=== PATIENT | female | born 1930 | race Caucasian/White ===

== ENCOUNTER 2019-09-12 13:16 | Emergency (ER) | payer OTHER, BC ==
[2019-09-12 14:40] LABS: Absolute Lymphocytes (CBC) 1.2 K/uL (0.7-4.9); Basophils % 0.7 % (0-1.3); Hematocrit 35.2 % (36.0-45.0); Lymphocytes % 13.6 % (15.3-44.8); MPV 8.6 fL (7.6-11.3); RBC Red Blood Cell Count 3.75 M/uL (3.86-4.86)
[2019-09-12 14:54] LABS: Albumin 2.6 g/dL (3.4-5.0); Bilirubin Direct 0.2 mg/dL (0-0.2); Bilirubin Total 0.5 mg/dL (0.2-1.0); Protein, Total 7.2 g/dL (6.4-8.2)
--- NOTE | 2019-09-12 16:18 | RAD REPORT ---
EXAM DESCRIPTION: CT - Abdomen Pelvis W Contrast - 09/12/2019 3:43 pm CLINICAL HISTORY: ABD PAIN COMPARISON: CT ABD PELVIS W CONTRAST dated 03/13/2014; Lumbar Spine 3 Views dated 06/13/2016 TECHNIQUE: Biphasic, helical CT imaging of the abdomen and pelvis was performed following 100 ml non -ionic IV contrast. No oral contrast. All CT scans are performed using dose optimization technique as appropriate and may include automated exposure control or mA/KV adjustment according to patient size. FINDINGS: No suspicious findings in the lung bases. Heart size is upper normal. No pericardial effus ion. Left hemidiaphragm elevation is noted. Chronic interstitial lung changes are present. No focal liver lesions. No significant change from prior imaging. No splenic abnormality. Multi stone cholelithiasis is present. No biliary tree dilatation. Pancreas is grossly abnormal. A 4.6 cm AP x 6.8 cm TR heterogeneous hypodense mass fills the body of the pancreas. Head and uncinate process show no suspicious findings. Pancreatic tail shows prominent pancreatic duct dilatation. Small lymph nodes are present in the adjacent tissues. No bulky lymphaden opathy seen. Renal function is symmetric but delayed. Patient has significant bilateral hydronephrosis and hydrour eter. This extends into the pelvis down to the UVJ. The UVJ is are poorly visualized. Patient has a l arge cystocele. A 6-7 centimeter portion of the urinary bladder extends through the pelvic floor crea ting an hourglass shaped urinary bladder. UVJ is are probably extending below the pelvic floor causin g extrinsic compression of the ureters in the resulting significant hydronephrosis. Uterus is absent. No pyelonephritis or acute parenchymal process. No adrenal abnormalities. No gastric dilatation or gastric wall thickening. No duodenal involvement by the pancreatic process. No acute small bowel finding. Moderate stool volume seen throughout the colon. No acute colon process seen. No free air, free fluid or inflammatory stranding. No bulky lymphadenopathy. No omental thic kening. Patient has low-lying pannus with an additional 5-6 centimeter hernia extending anteriorly fr om the pannus. The hernia contains small bowel loop. No congestion or edema. Disc and bony degenerative changes are present. Patient has approximately 30% T10, 80% T11, 10% T12, 50% L1, 80% L2, 50% L4 and 20% L5 compression fracture deformities. No pathologic component. Acute fr acture components are not seen or suspected. Compression fractures are not new but are progressive fr om 2017. 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 There is obstructive dilata tion of the pancreatic duct in the tail. Small lymph nodes are adjacent to the malignancy but no large malignant lymphadenopathy or ascites pr esent. No liver metastatic lesions seen. Significant bilateral hydronephrosis and hydroureter caused by a large cystocele with extrinsic obstr uctive compression of the distal ureters. Urinary bladder has a bilobed configuration created by th e large cyst is seal with the UVJ likely below the pelvic floor. Low-lying pannus with associated anterior wall hernia defect. The hernia contains small bowel but no acute component seen. Multi stone cholelithiasis. No acute gallbladder or biliary tree finding.
--- NOTE | 2019-09-12 17:56 | EDPHYS ---
Physician Documentation [facility] Name: Mireille Donovan Age: 89 yrs Sex: Female : 1930 Arrival Date: 09/12/2019 Time: 13:20 Bed 13 Private MD: Faisal Chirinos R ED Physician José Hutchinson HPI: 09/11 14:38 This 89 yrs old Female presents to ER via Wheelchair with complaints of ms3 Abdominal Pain, Shoulder Pain. 14:38 The patient or guardian complains of pain, that is acute. right shoulder. Context: The ms3 problem was sustained at an unknown site, resulted from an unknown reason, The patient reports no decreased range of motion. The patient reports no obvious deformity. Onset: The symptoms/episode began/occurred 5 week(s) ago. Modifying factors: the symptoms are alleviated by nothing. The symptoms are aggravated by movement. Associated signs and symptoms: The patient has no apparent associated signs or symptoms. The patient presents with abdominal pain that is diffuse. Onset: The symptoms/episode began/occurred 5 week(s) ago. The symptoms do not radiate. Associated signs and symptoms: Pertinent positives: nausea, Pertinent negatives: vomiting. The symptoms are described as achy. Modifying factors: The symptoms are alleviated by nothing, the symptoms are aggravated by Nothing. Severity of pain: in the emergency department the pain is unchanged. Severity of symptoms: in the emergency department the symptoms are unchanged. Treatment prior to arrival includes: no previous treatment. Historical: - Allergies: 13:35 No Known Allergies; iw - Home Meds: 13:35 carvedilol 3.125 mg oral tab 1 tab 2 times per day [Active]; furosemide 20 mg Oral tab iw 1 tab once daily [Active]; - PSHx: 13:35 Hernia repair; iw - Immunization history:: Adult Immunizations not up to date. - Social history:: Smoking status: Patient/guardian denies using tobacco, the patient reports quitting approximately 30 years ago. - Family history:: not pertinent. ROS: 14:38 Constitutional: Negative for fever, and chills. Eyes: Negative for injury, pain, ms3 redness, and discharge, ENT: Negative for injury, pain, and discharge, Neck: Negative for injury, pain, and swelling, Cardiovascular: Negative for chest pain, and palpitations. Respiratory: Negative for shortness of breath, cough, wheezing, and pleuritic chest pain, Back: Negative for injury and pain, MS/Extremity: Negative for injury and deformity, Skin: Negative for injury, rash, and discoloration, Neuro: Negative for headache, weakness, numbness, tingling. 14:38 Abdomen/GI: Positive for abdominal pain, nausea. 14:38 MS/extremity: Positive for Right shoulder pain. Exam: 14:38 Constitutional: This is a well developed, well nourished patient who is awake, alert, ms3 and in no acute distress. Head/Face: Normocephalic, atraumatic. Eyes: Pupils equal round and reactive to light, extra-ocular motions intact. Lids and lashes normal. Conjunctiva and sclera are non-icteric and not injected. Cornea within normal limits. Periorbital areas with no swelling, redness, or edema. Chest/axilla: Normal chest wall appearance and motion. Nontender with no deformity. Cardiovascular: Regular rate and rhythm with a normal S1 and S2. No gallops, murmurs, or rubs. Normal PMI, no JVD. No pulse deficits. Respiratory: Lungs have equal breath sounds bilaterally, clear to auscultation and percussion. No rales, rhonchi or wheezes noted. No increased work of breathing, no retractions or nasal flaring. Back: No spinal tenderness. No costovertebral tenderness. Full range of motion. Skin: Warm, dry with normal turgor. Normal color with no rashes, no lesions, and no evidence of cellulitis. Neuro: Awake and alert, GCS 15, oriented to person, place, time, and situation. Cranial nerves II-XII grossly intact. Motor strength 5/5 in all extremities. Sensory grossly intact. Cerebellar exam normal. Normal gait. 14:38 Abdomen/GI: Inspection: abdomen appears normal, Bowel sounds: normal, Palpation: soft, mild abdominal tenderness, in all quadrants. Vital Signs: 13:31 BP 102 / 62; Pulse 91; Resp 16 S; Temp 97.7; Pulse Ox 95% on R/A; Weight 59.87 kg; iw Height 5 ft. 5 in. (165.10 cm); Pain 0/10; 16:00 BP 160 / 74; Pulse 79; Resp 25; Temp 98; Pulse Ox 98% ; ah 16:54 BP 160 / 74; Pulse 79; Resp 25; Pulse Ox 98% ; ah 18:22 BP 145 / 97; Pulse 87; Resp 16; Temp 97.6; Pulse Ox 96% on R/A; ah 13:31 Body Mass Index 21.97 (59.87 kg, 165.10 cm) iw MDM: 13:59 Patient medically screened. ms3 14:42 Differential diagnosis: tendonitis, appendicitis, bowel obstruction, cholecystitis. ms3 Data reviewed: vital signs, nurses notes. 18:27 Data interpreted: Pulse oximetry: Interpretation: normal. Counseling: I had a detailed ms3 discussion with the patient and/or guardian regarding: lab results, radiology results, the need to transfer to another facility. ED course: Discussed case with Dr Gee. She accepts pt to medicine floor at [facility].. 09/11 14:01 Order name: CBC with Diff; Complete Time: 15:10 ms3 09/11 14:01 Order name: Basic Metabolic Panel; Complete Time: 15:10 ms3 09/11 14:01 Order name: Creatinine for Radiology; Complete Time: 15:10 ms3 09/11 14:01 Order name: Hepatic Function; Complete Time: 15:10 ms3 09/11 14:01 Order name: Lipase; Complete Time: 15:10 ms3 09/11 14:01 Order name: CT Abd/Pelvis - IV Contrast Only; Complete Time: 16:59 ms3 09/11 14:01 Order name: IV Saline Lock; Complete Time: 14:16 ms3 09/11 14:01 Order name: Labs collected and sent; Complete Time: 14:16 ms3 Administered Medications: No medications were administered Disposition: 09/12/19 17:55 Transfer ordered to [facility]. Diagnosis are Pancreatic Cancer, Anemia, Cystocele, Hydronephrosis, Upper abdominal pain, unspecified, Nausea. - Reason for transfer: Higher level of care. - Accepting physician is Marlen. - Condition is Stable. - Problem is new. - Symptoms are unchanged. Signatures: Dispatcher [employer] EDNegar Cary RN RN Monika Costello RN RN ah Sims, Marcus, DO DO ms3 Corrections: (The following items were deleted from the chart) 19:56 17:55 09/12/2019 17:55 Transfer ordered to [facility]. ah Diagnosis is Pancreatic Cancer; Anemia; Cystocele; Hydronephrosis; Upper abdominal pain, unspecified; Nausea. Reason for transfer: Higher level of care. Accepting physician is Marlen. Condition is Stable. Problem is new. Symptoms are unchanged. ms3
--- NOTE | 2019-09-12 17:56 | ER ---
Nurse's Notes [facility] Name: Mireille Donovan Age: 89 yrs Sex: Female : 1930 Arrival Date: 09/12/2019 Time: 13:20 Bed 13 Private MD: Faisal Chirinos R Diagnosis: Pancreatic Cancer;Anemia;Cystocele;Hydronephrosis;Upper abdominal pain, unspecified;Nausea Presentation: 09/11 13:31 Chief complaint: Patient states: mid abd pain X 3 weeks , denies n/v/d, has burning iw sensation when she drinks water, also has pain in left shoulder blade X 3 weeks. Coronavirus screen: Proceed with normal triage. Patient denies a cough. Patient denies shortness of breath or difficulty breathing. Patient denies measured and/or subjective temperature greater than 100.4F prior to today's visit. Patient denies travel on a cruise ship or to a country the [facility] currently lists as an affected area. Patient denies contact with known and/or suspected case of COVID-19. Ebola Screen: Patient negative for fever greater than or equal to 101.5 degrees Fahrenheit, and additional compatible Ebola Virus Disease symptoms Patient denies exposure to infectious person. Patient denies travel to an Ebola-affected area in the 21 days before illness onset. No symptoms or risks identified at this time. Initial Sepsis Screen: Does the patient meet any 2 criteria? No. Patient's initial sepsis screen is negative. Does the patient have a suspected source of infection? No. Patient's initial sepsis screen is negative. Risk Assessment: Do you want to hurt yourself or someone else? Patient reports no desire to harm self or others. Onset of symptoms was August 20, 2019. 13:31 Method Of Arrival: Wheelchair iw 13:31 Acuity: CLARITA 3 iw Historical: - Allergies: 13:35 No Known Allergies; iw - Home Meds: 13:35 carvedilol 3.125 mg oral tab 1 tab 2 times per day [Active]; furosemide 20 mg Oral tab iw 1 tab once daily [Active]; - PSHx: 13:35 Hernia repair; iw - Immunization history:: Adult Immunizations not up to date. - Social history:: Smoking status: Patient/guardian denies using tobacco, the patient reports quitting approximately 30 years ago. - Family history:: not pertinent. Screenin:27 Abuse screen: Denies threats or abuse. Nutritional screening: No deficits noted. Tuberculosis screening: No symptoms or risk factors identified. Fall Risk None identified. Assessment: 13:55 General: Appears uncomfortable, Behavior is calm, cooperative. Pain: Complains of pain ah in right upper quadrant Pain does not radiate. Pain currently is 6 out of 10 on a pain scale. Neuro: Level of Consciousness is awake, alert, Oriented to person, place, time, situation. Cardiovascular: Heart tones S1 S2 Capillary refill < 3 seconds Patient's skin is warm and dry. Pulses are palpable in right radial artery and left radial artery. Respiratory: Airway is patent Respiratory effort is even, unlabored, Respiratory pattern is regular, symmetrical, Breath sounds are clear bilaterally. Breath sounds are coarse bilaterally. GI: Abdomen is distended, Bowel sounds present X 4 quads. Abdomen is tender to palpation in right upper quadrant Reports decreased appetite. : No signs and/or symptoms were reported regarding the genitourinary system. EENT: No signs and/or symptoms were reported regarding the EENT system. Derm: No signs and/or symptoms reported regarding the dermatologic system. Musculoskeletal: No signs and/or symptoms reported regarding the musculoskeletal system. 18:20 Reassessment: Attempted to call Report to [facility] and was told to call back in 30 mins. Vital Signs: 13:31 BP 102 / 62; Pulse 91; Resp 16 S; Temp 97.7; Pulse Ox 95% on R/A; Weight 59.87 kg; iw Height 5 ft. 5 in. (165.10 cm); Pain 0/10; 16:00 BP 160 / 74; Pulse 79; Resp 25; Temp 98; Pulse Ox 98% ; ah 16:54 BP 160 / 74; Pulse 79; Resp 25; Pulse Ox 98% ; ah 18:22 BP 145 / 97; Pulse 87; Resp 16; Temp 97.6; Pulse Ox 96% on R/A; 13:31 Body Mass Index 21.97 (59.87 kg, 165.10 cm) ED Course: 13:20 Patient arrived in ED. mr 13:20 Faisal Chirinos MD is Private Physician. mr 13:34 Triage completed. iw 13:35 Arm band placed on. iw 13:44 José Hutchinson DO is Attending Physician. ms3 14:06 Monika Costello, RN is Primary Nurse. 15:[address] via stretcher. 15:44 CT Abd/Pelvis - IV Contrast Only In Process Unspecified. EDMS 15:50 Patient moved back from CT. 17:33 initiated a transfer with Erica from the [facility]. eb 17:[address] Gee the Hospitalist injection mold tooling technician for [facility] with Dr. Hutchinson for patient eb transfer consultation. 18:02 administrative approval given by Erica Wright/ patient has been accepted to [facility] bed 2013/ Krys Leon has accepted the patient in transfer/ report to be called to [phone]. 18:27 Patient has correct armband on for positive identification. Placed in gown. Bed in low ah position. Call light in reach. Side rails up X2. 19:30 No provider procedures requiring assistance completed. Patient transferred, IV remains ah in place. Administered Medications: No medications were administered Outcome: 17:55 ER care complete, transfer ordered by MD. ms3 19:45 Transferred by ground EMS to [facility], Transfer form completed. 19:45 Condition: stable 19:45 Instructed on the need for transfer. 19:56 Patient left the ED. Signatures: Dispatcher [employer] Faboila Perkins Irene RN GABO Sandy Almanzar Amy, RN RN José Hutchinson DO DO ms3
[2019-09-12 20:06] VITALS: BP 145/97; TEMP 97.6; O2SAT 96
== END 2019-09-12 19:56 | disposition short-term general hospital (02) ==
LOC: ER 13:16
DX: C25.9 Malignant neoplasm of pancreas, unspecified (principal); N13.30 Unspecified hydronephrosis; D64.9 Anemia, unspecified; N81.10 Cystocele, unspecified; R11.0 Nausea; M25.512 Pain in left shoulder
CPT/HCPCS: 85025; 80048; 36415; 80076; 83690; 74177; 99285; Q9967